=== PATIENT | female | born 1985 | race Caucasian/White ===

== ENCOUNTER 2018-09-01 19:17 | Emergency (ER) | payer BC ==
[~2018-09-01] VITALS: Ht 177.8 cm; Wt 116.7 kg
[2018-09-01 19:31] VITALS: Ht 177.8 cm; Wt 116.7 kg
[2018-09-01 21:53] VITALS: BP 131/69
== END 2018-09-01 21:53 | disposition home or self-care (01) ==
LOC: ED 19:17
DX: S16.1XXA Strain of muscle, fascia and tendon at neck level, initial encounter (principal); S39.012A Strain of muscle, fascia and tendon of lower back, initial encounter; Z98.890 Other specified postprocedural states; Z90.49 Acquired absence of other specified parts of digestive tract; V49.88XA Car occupant (driver) (passenger) injured in other specified transport accidents, initial encounter; Y93.I9 Activity, other involving external motion; Y92.413 State road as the place of occurrence of the external cause; Y99.8 Other external cause status
CPT/HCPCS: 72072; J1885